=== PATIENT | female | born 1960 | race Caucasian/White ===

== ENCOUNTER 2016-08-31 14:15 | Emergency (ER) | payer SELFPAY ==
[~2016-08-31] VITALS: Ht 165.1 cm; Wt 92.0 kg
[~2016-08-31 14:15] MED LIST: ALBU18HF INH; ASPI-650 PO; ATOR40TA78 PO; CEFD300C2 PO; DOXY100T PO; FURO-92 PO; LISI-167 PO; LISI-170 PO; MAGN64TA9 PO; METO25TA35 PO; POTA20TA14 PO
[2016-08-31 14:18] VITALS: BP 150/98
[2016-08-31] MEDS ORDERED: PROPARACAINE OPHTH 0.5%, 15ML ONE (14:46)
[2016-08-31] MEDS ORDERED: FLUORESCEIN OPHTHALMIC 1 MG STRIP ONE (14:46)
[2016-08-31] MEDS ORDERED: PROPARACAINE OPHTH 0.5%, 15ML EACHEYE ONE (15:00)
[2016-08-31] MEDS ORDERED: FLUORESCEIN OPHTHALMIC 1 MG STRIP EACHEYE ONE (15:00)
== END 2016-08-31 15:15 | disposition home or self-care (01) ==
LOC: ED 14:54
DX: H10.023 Other mucopurulent conjunctivitis, bilateral (principal); J44.9 Chronic obstructive pulmonary disease, unspecified; I11.0 Hypertensive heart disease with heart failure; I50.9 Heart failure, unspecified; F17.200 Nicotine dependence, unspecified, uncomplicated; Z87.01 Personal history of pneumonia (recurrent)
CPT/HCPCS: 99283

== ENCOUNTER 2016-09-06 07:55 | Emergency (ER) | payer SELFPAY ==
[~2016-09-06] VITALS: Ht 165.1 cm; Wt 92.6 kg
[2016-09-06 07:58] VITALS: BP 170/125
== END 2016-09-06 10:13 | disposition home or self-care (01) ==
LOC: ED 08:45
DX: H66.002 Acute suppurative otitis media without spontaneous rupture of ear drum, left ear (principal); J44.9 Chronic obstructive pulmonary disease, unspecified; I50.9 Heart failure, unspecified; I11.0 Hypertensive heart disease with heart failure
CPT/HCPCS: 71020; 99283; 99284; 99285

== ENCOUNTER 2016-09-20 12:51 | Emergency (ER) | payer SELFPAY ==
[~2016-09-20] VITALS: Ht 165.1 cm; Wt 96.0 kg
[~2016-09-20 12:51] MED LIST changes: -CEFD300C2 PO; +CEFD300C37 PO
[2016-09-20] MEDS ORDERED: LISI-167 PO (13:38)
[2016-09-20] MEDS ORDERED: beta blocker PO (13:38)
[2016-09-20] MEDS ORDERED: POTA10TA11 PO (13:38)
[2016-09-20] MEDS ORDERED: FURO-93 PO (13:38)
[2016-09-20 14:07] LABS: BLOOD UREA NITROGEN 14 mg/dL (7-18)
[2016-09-20 14:14] LABS: IS PT STATUS REG ER OR PRE ER? YES
[2016-09-20 15:17] VITALS: BP 111/69
== END 2016-09-20 15:21 | disposition home or self-care (01) ==
LOC: ED 13:39
DX: I50.9 Heart failure, unspecified (principal); R60.0 Localized edema; F17.200 Nicotine dependence, unspecified, uncomplicated; I10 Essential (primary) hypertension; J44.9 Chronic obstructive pulmonary disease, unspecified
CPT/HCPCS: 36415; 71010; 80048; 82040; 83880; 84484; 85025; 93005

== ENCOUNTER 2016-11-30 06:06 | Emergency (ER) | payer SELFPAY ==
[~2016-11-30] VITALS: Ht 165.1 cm; Wt 89.7 kg
[~2016-11-30 06:06] MED LIST changes: +FURO-93 PO; +POTA10TA11 PO; +beta blocker PO
[2016-11-30] MEDS ORDERED: SODIUM CHLORIDE 0.9% 1,000 ML IV ONE (06:42)
[2016-11-30] MEDS ORDERED: MORPHINE SULFATE 4 MG/ML, 1ML ONE (06:54)
[2016-11-30] MEDS ORDERED: ONDANSETRON 2MG/ML, 2ML ONE (06:54)
[2016-11-30] MEDS ORDERED: MORPHINE SULFATE 4 MG/ML, 1ML IVPush PRN (07:00)
[2016-11-30] MEDS ORDERED: ONDANSETRON 2MG/ML, 2ML IVPush ONE (07:00)
[2016-11-30 07:06] LABS: BLOOD UREA NITROGEN 12 mg/dL (7-18)
[2016-11-30 09:44] VITALS: BP 158/88
== END 2016-11-30 09:46 | disposition home or self-care (01) ==
LOC: ED 06:27
DX: R10.31 Right lower quadrant pain (principal); I10 Essential (primary) hypertension; J44.9 Chronic obstructive pulmonary disease, unspecified
CPT/HCPCS: 36415; 74176; 80048; 81003; 82040; 85025; 96361; 96374; 96375; 99285; J2405; J7030

== ENCOUNTER 2017-01-21 14:30 | Inpatient (IN) | payer MEDICAID, OTHER ==
[~2017-01-21] VITALS: Ht 165.1 cm; Wt 91.9 kg
[2017-01-21] MEDS ORDERED: ASPIRIN 81 MG TABLET CHEW ONE (15:18)
[2017-01-21 15:19] LABS: HEMATOCRIT 41.4 % (34.6-47.8); HEMOGLOBIN 14.2 g/dL (11.7-16.4); WHITE BLOOD COUNT 10.1 x10^3/uL (3.4-10)
[2017-01-21] MEDS ORDERED: ASPIRIN 81 MG TABLET CHEW PO ONE (15:30)
[2017-01-21 15:31] LABS: BLOOD UREA NITROGEN 11 mg/dL (7-18)
[2017-01-21 15:37] LABS: IS PT STATUS REG ER OR PRE ER? YES
[2017-01-21] MEDS ORDERED: OMNIPAQUE 350 MG/ML, 100ML BOTTLE ONE (16:17)
[2017-01-21] MEDS ORDERED: NITROGLYCERIN SINGLE TAB 0.4 MG SL PRN (16:30)
[2017-01-21] MEDS ORDERED: MORPHINE SULFATE 4 MG/ML, 1ML ONE (16:30)
[2017-01-21] MEDS ORDERED: ONDANSETRON 2MG/ML, 2ML IVPush ONE (16:30)
[2017-01-21] MEDS ORDERED: MORPHINE SULFATE 4 MG/ML, 1ML IVPush PRN (16:30)
[2017-01-21] MEDS ORDERED: NITROGLYCERIN SINGLE TAB 0.4 MG SL ONE (16:30)
[2017-01-21] MEDS ORDERED: ONDANSETRON 2MG/ML, 2ML ONE (16:31)
[2017-01-21] MEDS ORDERED: AZITHROMYCIN 500 MG in SODIUM CHLORIDE 0.9% 250 ML IV ONE (17:00)
[2017-01-21] MEDS ORDERED: SODIUM CHLORIDE 0.9% 1,000ML IVBOLUS ONE (17:00)
[2017-01-21] MEDS ORDERED: CEFTRIAXONE PMX 1GM/50ML 50 ML IVPB ONE (17:00)
[2017-01-21] MEDS ORDERED: HYDROCHLOROTHIAZIDE 25 MG TABLET PO ONE (18:00)
[2017-01-21] MEDS ORDERED: ENOXAPARIN 100 MG/ML SQ SCH (18:00)
[2017-01-21] MEDS ORDERED: CEFTRIAXONE PMX 1GM/50ML 50 ML ONE (18:15)
[2017-01-21] MEDS ORDERED: ENALAPRILAT 1.25 MG/ML, 2ML IVPush PRN (20:00)
[2017-01-21] MEDS ORDERED: TEMAZEPAM 15 MG CAPSULE PO PRN (20:00)
[2017-01-21] MEDS ORDERED: ONDANSETRON ODT 4 MG PO PRN (20:00)
[2017-01-21] MEDS ORDERED: ALBUTEROL SULFATE 2.5 MG/3 ML ONE (20:51)
[2017-01-21 21:01] LABS: IS PT STATUS REG ER OR PRE ER? YES
[2017-01-21] MEDS ORDERED: ALBUTEROL SULFATE 2.5 MG/3 ML NPPB PRN (21:30)
[2017-01-21 22:48] VITALS: BP 123/90
[2017-01-22] MEDS: CARVEDILOL 6.25 MG TABLET PO SCH ×3 (00:15→17:27)
[2017-01-22] MEDS: LISINOPRIL 20 MG TABLET PO SCH ×2 (00:16→11:27)
[2017-01-22] MEDS ORDERED: FUROSEMIDE 40 MG/4 ML IV ONE (00:30)
[2017-01-22 02:00] VITALS: BP 123/90
[2017-01-22 02:39] LABS: IS PT STATUS REG ER OR PRE ER? NO
[2017-01-22 04:30] LABS: HEMATOCRIT 43.1 % (34.6-47.8); HEMOGLOBIN 14.4 g/dL (11.7-16.4); WHITE BLOOD COUNT 9.6 x10^3/uL (3.4-10)
[2017-01-22 04:43] LABS: BLOOD UREA NITROGEN 11 mg/dL (7-18)
[2017-01-22] MEDS: CEFTRIAXONE PMX 1GM/50ML 50 ML IV SCH ×2 (06:25→18:17)
[2017-01-22] MEDS: ALBUTEROL SULFATE 2.5 MG/3 ML NPPB SCH ×4 (07:02→20:00)
[2017-01-22] MEDS: ACETAMINOPHEN 325 MG TABLET PO PRN (08:43)
[2017-01-22] MEDS: POTASSIUM CHLORIDE 10 MEQ TABLET.ER PO SCH (11:26)
[2017-01-22] MEDS: ENOXAPARIN 100 MG/ML SQ SCH (11:27)
[2017-01-22] MEDS: ASPIRIN 81 MG TABLET EC PO SCH (17:24)
[2017-01-22 19:40] VITALS: BP 101/74
[2017-01-22] MEDS: AZITHROMYCIN 500 MG in SODIUM CHLORIDE 0.9% 250 ML IV SCH (19:46)
[2017-01-22 20:08] VITALS: BP 100/58
[2017-01-22 22:35] VITALS: BP 105/78
[2017-01-23] MEDS: LISINOPRIL 20 MG TABLET PO SCH ×3 (00:18→20:26)
[2017-01-23 00:20] VITALS: BP 115/81
[2017-01-23] MEDS: CEFTRIAXONE PMX 1GM/50ML 50 ML IV SCH ×2 (06:02→17:41)
[2017-01-23] MEDS: ASPIRIN 81 MG TABLET EC PO SCH (06:03)
[2017-01-23 06:04] LABS: HEMATOCRIT 45.7 % (34.6-47.8); HEMOGLOBIN 15.3 g/dL (11.7-16.4); WHITE BLOOD COUNT 6.5 x10^3/uL (3.4-10)
[2017-01-23] MEDS: CARVEDILOL 6.25 MG TABLET PO SCH ×2 (06:04→17:41)
[2017-01-23 06:23] LABS: BLOOD UREA NITROGEN 19 mg/dL (7-18)
[2017-01-23 06:24] LABS: ASPARTATE AMINO TRANSFERASE 17 U/L (15-37)
[2017-01-23] MEDS: ALBUTEROL SULFATE 2.5 MG/3 ML NPPB SCH ×4 (07:00→20:00)
[2017-01-23] MEDS ORDERED: NITROGLYCERIN 0.4 MG/SPRAY SL PRN (07:00)
[2017-01-23] MEDS ORDERED: NITROGLYCERIN 0.4 MG BOTTLE (25 TABS) SL PRN (07:00)
[2017-01-23] MEDS ORDERED: SODIUM CHLORIDE 0.9% 1,000 ML IV ONE (07:59)
[2017-01-23 09:18] VITALS: BP 99/66
[2017-01-23] MEDS: ENOXAPARIN 100 MG/ML SQ SCH (09:20)
[2017-01-23] MEDS: POTASSIUM CHLORIDE 10 MEQ TABLET.ER PO SCH (09:20)
[2017-01-23] MEDS: ACETAMINOPHEN 325 MG TABLET PO PRN (09:20)
[2017-01-23 14:02] VITALS: BP 116/77
[2017-01-23] MEDS ORDERED: MIDAZOLAM 1 MG/ML, 5ML ONE (14:13)
[2017-01-23] MEDS ORDERED: VERAPAMIL 2.5 MG/ML, 2ML ONE (14:13)
[2017-01-23] MEDS ORDERED: TICAGRELOR 90 MG TABLET ONE (14:13)
[2017-01-23] MEDS ORDERED: FENTANYL PF 100 MCG/2ML ONE (14:13)
[2017-01-23] MEDS ORDERED: BIVALIRUDIN 250 MG ONE (14:14)
[2017-01-23] MEDS ORDERED: HEPARIN 1,000 UNITS/ML, 10ML ONE (14:14)
[2017-01-23] MEDS ORDERED: LIDOCAINE 2%, 20ML ONE (14:14)
[2017-01-23] MEDS: SODIUM CHLORIDE 0.9% 1,000 ML IV SCH ×2 (15:28→20:26)
[2017-01-23 17:40] VITALS: BP 119/78
[2017-01-23 18:58] VITALS: BP 115/75
[2017-01-23] MEDS: AZITHROMYCIN 500 MG in SODIUM CHLORIDE 0.9% 250 ML IV SCH (20:26)
[2017-01-24 01:54] VITALS: BP 112/68
[2017-01-24] MEDS: ASPIRIN 81 MG TABLET EC PO SCH (05:51)
[2017-01-24] MEDS: CARVEDILOL 6.25 MG TABLET PO SCH (05:51)
[2017-01-24] MEDS: CEFTRIAXONE PMX 1GM/50ML 50 ML IV SCH (05:51)
[2017-01-24] MEDS: SODIUM CHLORIDE 0.9% 1,000 ML IV SCH (05:54)
[2017-01-24 07:00] VITALS: BP 112/77
[2017-01-24] MEDS: LISINOPRIL 20 MG TABLET PO SCH (08:45)
[2017-01-24] MEDS: POTASSIUM CHLORIDE 10 MEQ TABLET.ER PO SCH (08:45)
[2017-01-24] MEDS ORDERED: ENOXAPARIN 40 MG/0.4 ML SQ SCH (09:00)
[2017-01-24] MEDS ORDERED: PNEUMOCOCCAL 23 VACCINE IM-VACC ONE (14:00)
[2017-01-24] MEDS ORDERED: CARV6.2512 PO (14:06)
[2017-01-24] MEDS ORDERED: LISI-170 PO (14:06)
[2017-01-24] MEDS ORDERED: AMOX1TAB61 PO (14:06)
[2017-01-24] MEDS ORDERED: ASPI-621 PO (14:06)
== END 2017-01-24 14:36 | disposition home or self-care (01) | DRG 280 ==
LOC: ED 18:16 → EDIP 20:18 → CCU 22:34 → 5SO 01-22 19:57
PROVIDERS: ADMIT Internal Medicine; ATTEND Internal Medicine
PROC: 4A023N7 Measurement of Cardiac Sampling and Pressure, Left Heart, Percutaneous Approach (ICD-10-PCS; principal; 2017-01-23)
PROC: B2111ZZ Fluoroscopy of Multiple Coronary Arteries using Low Osmolar Contrast (ICD-10-PCS; 2017-01-23)
DX: I21.4 Non-ST elevation (NSTEMI) myocardial infarction (principal); I50.43 Acute on chronic combined systolic (congestive) and diastolic (congestive) heart failure; J18.1 Lobar pneumonia, unspecified organism; I42.9 Cardiomyopathy, unspecified; I11.0 Hypertensive heart disease with heart failure; E44.0 Moderate protein-calorie malnutrition; J44.0 Chronic obstructive pulmonary disease with (acute) lower respiratory infection; Z68.33 Body mass index [BMI] 33.0-33.9, adult; E66.9 Obesity, unspecified; E78.5 Hyperlipidemia, unspecified; F17.210 Nicotine dependence, cigarettes, uncomplicated; I25.10 Atherosclerotic heart disease of native coronary artery without angina pectoris; Z82.49 Family history of ischemic heart disease and other diseases of the circulatory system; Z91.14 Patient's other noncompliance with medication regimen
CPT/HCPCS: 36415; 71010; 71275; 80048; 80053; 80061; 82040; 83605; 83735; 83880; 84100; 84145; 84484; 85025; 85379; 87040; 87070; 87081; 87205; 90732; 93005; 93306; 94640; 96365; 96368; J0456; J0583; J0696; J1644; J1650; J1940; J2250; J3010; J3490; J7613; Q9967; J7030; J7050

== ENCOUNTER 2017-01-25 12:37 | Emergency (ER) | payer MEDICAID, OTHER ==
[~2017-01-25] VITALS: Ht 165.1 cm; Wt 92.5 kg
[~2017-01-25 12:37] MED LIST changes: +AMOX1TAB61 PO; +ASPI-621 PO; +CARV6.2512 PO
[2017-01-25] MEDS ORDERED: SODIUM CHLORIDE FLUSH 10ML SYR IVF ONE (13:30)
[2017-01-25] MEDS ORDERED: SODIUM CHLORIDE 0.9% 1,000ML IVBOLUS ONE (13:30)
[2017-01-25] MEDS ORDERED: ONDANSETRON 2MG/ML, 2ML ONE (14:23)
[2017-01-25] MEDS ORDERED: MORPHINE SULFATE 4 MG/ML, 1ML ONE (14:23)
[2017-01-25 14:29] LABS: HEMATOCRIT 45.5 % (34.6-47.8); HEMOGLOBIN 15.2 g/dL (11.7-16.4); WHITE BLOOD COUNT 5.9 x10^3/uL (3.4-10)
[2017-01-25] MEDS ORDERED: morphine SULFATE 10 MG/ML, 1ML IVPush ONE (14:30)
[2017-01-25] MEDS ORDERED: ONDANSETRON 2MG/ML, 2ML IVPush ONE (14:30)
[2017-01-25 14:41] LABS: BLOOD UREA NITROGEN 15 mg/dL (7-18)
[2017-01-25 14:48] LABS: IS PT STATUS REG ER OR PRE ER? YES
[2017-01-25 16:32] VITALS: BP 125/85
== END 2017-01-25 16:34 | disposition home or self-care (01) ==
LOC: ED 15:00
DX: M79.604 Pain in right leg (principal); J44.9 Chronic obstructive pulmonary disease, unspecified; Z90.49 Acquired absence of other specified parts of digestive tract
CPT/HCPCS: 36415; 71020; 80048; 82040; 83880; 84484; 85025; 93005; 96361; 96374; 96375; 99285; J2270; J2405; J7030

== ENCOUNTER 2017-03-10 06:26 | Emergency (ER) | payer MEDICAID ==
[~2017-03-10] VITALS: Ht 165.1 cm; Wt 92.9 kg
[2017-03-10 07:00] LABS: PATH.CAST-FLAG NOT PRESENT; SPERM-FLAG NOT PRESENT; SRC-FLAG NOT PRESENT; XTAL-FLAG NOT PRESENT; YLC-FLAG NOT PRESENT
[2017-03-10] MEDS ORDERED: KETOROLAC 30 MG/1 ML IVPush ONE (07:00)
[2017-03-10] MEDS ORDERED: SODIUM CHLORIDE FLUSH 10ML SYR IVF ONE (07:00)
[2017-03-10] MEDS ORDERED: MORPHINE SULFATE 4 MG/ML, 1ML IVPush PRN (07:00)
[2017-03-10] MEDS ORDERED: SODIUM CHLORIDE 0.9% 1,000ML IVBOLUS ONE (07:00)
[2017-03-10] MEDS ORDERED: ONDANSETRON 2MG/ML, 2ML IVPush ONE (07:00)
[2017-03-10 07:01] LABS: HEMATOCRIT 41.9 % (34.6-47.8); HEMOGLOBIN 14.1 g/dL (11.7-16.4); WHITE BLOOD COUNT 8.3 x10^3/uL (3.4-10)
[2017-03-10 07:11] LABS: ASPARTATE AMINO TRANSFERASE 30 U/L (15-37); BLOOD UREA NITROGEN 12 mg/dL (7-18)
[2017-03-10] MEDS ORDERED: ONDANSETRON 2MG/ML, 2ML ONE (07:19)
[2017-03-10] MEDS ORDERED: KETOROLAC 30 MG/1 ML ONE (07:19)
[2017-03-10] MEDS ORDERED: morphine SULFATE 10 MG/ML, 1ML ONE (07:55)
[2017-03-10 08:44] VITALS: BP 144/94
== END 2017-03-10 09:01 | disposition home or self-care (01) ==
LOC: ED 07:49
DX: S39.012A Strain of muscle, fascia and tendon of lower back, initial encounter (principal); R10.9 Unspecified abdominal pain; J44.9 Chronic obstructive pulmonary disease, unspecified; I50.9 Heart failure, unspecified; I11.0 Hypertensive heart disease with heart failure; I25.2 Old myocardial infarction; X58.XXXA Exposure to other specified factors, initial encounter; Y93.89 Activity, other specified; Y92.89 Other specified places as the place of occurrence of the external cause; Y99.8 Other external cause status
CPT/HCPCS: 36415; 80053; 81001; 83690; 85025; 87086; 96361; 96374; 96375; 99284; J1885; J2405; J7030